=== PATIENT | male | born 1930 | race Caucasian/White ===

== ENCOUNTER 2018-01-24 02:39 | Emergency (ER) | payer OTHER ==
[~2018-01-24] VITALS: Ht 182.9 cm; Wt 108.4 kg
[~2018-01-24 02:39] MED LIST: ASPIR LOW81 MG PO; BAYER ASPIRIN C81 MG PO; LOTENSIN10 MG PO; VITAMIN D2000 I2 PO
[2018-01-24 02:49] VITALS: Ht 182.9 cm; Wt 108.4 kg
[2018-01-24 05:36] VITALS: BP 124/80
== END 2018-01-24 05:36 | disposition home or self-care (01) ==
LOC: ED 02:39
DX: M25.552 Pain in left hip (principal); M19.90 Unspecified osteoarthritis, unspecified site; I10 Essential (primary) hypertension
CPT/HCPCS: J1885

== ENCOUNTER 2018-01-28 03:39 | Emergency (ER) | payer OTHER ==
[~2018-01-28] VITALS: Ht 182.9 cm; Wt 108.9 kg
[2018-01-28 03:51] VITALS: Ht 182.9 cm; Wt 108.9 kg
[2018-01-28 06:20] LABS: UA SPECIFIC GRAVITY 1.025 (1.005-1.035); microscopic required? YES; urine erythrocyte NEGATIVE (NEGATIVE)
[2018-01-28 08:55] VITALS: BP 165/78
== END 2018-01-28 08:55 | disposition home or self-care (01) ==
LOC: ED 03:39
PROVIDERS: Emergency Medicine
DX: M25.552 Pain in left hip (principal); I10 Essential (primary) hypertension
CPT/HCPCS: J1885; J3010

== ENCOUNTER 2018-05-14 16:06 | Inpatient (IN) | payer OTHER ==
[~2018-05-14] VITALS: Ht 182.9 cm; Wt 105.7 kg
[~2018-05-14 16:06] MED LIST changes: +D-20001 TAB PO; -VITAMIN D2000 I2 PO
[2018-05-14 16:19] VITALS: Ht 182.9 cm; Wt 105.7 kg
[2018-05-14 17:14] LABS: BASOPHIL % 0.1 % (0-2); PLATELET COUNT 174 x10^3mcL (130-400)
[2018-05-14 17:15] LABS: RED CELL DISTRIBUTION WIDTH 15.9 % (11.5-14.5)
[2018-05-14 17:18] LABS: CALCIUM 8.2 mg/dL (8.5-10.1); CARBON DIOXIDE 27.5 mmol/L (21-32); CHLORIDE SERUM 105 mmol/L (98-107); CREATININE SERUM 1.1 mg/dL (0.7-1.3); GLUCOSE SERUM 87 mg/dL (74-106); POTASSIUM SERUM 4.1 mmol/L (3.5-5.1); SODIUM SERUM 139 mmol/L (136-145)
[2018-05-14 17:23] LABS: ALKALINE PHOSPHATASE 117 U/L (46-116); ALT/SGPT 20 U/L (16-63); AST/SGOT 19 U/L (15-37); BILIRUBIN TOTAL 0.5 mg/dL (0.20-1.00); TOTAL PROTEIN, SERUM 6.8 g/dL (6.4-8.2)
[2018-05-14 17:24] LABS: ALBUMIN 2.7 g/dL (3.4-5.0)
[2018-05-14] MEDS ORDERED: ATORVASTATIN CA40 M1 PO (17:25)
[2018-05-14] MEDS ORDERED: NYSTOP100000 U/G (17:26)
[2018-05-14] MEDS ORDERED: LOSARTAN POTASS50 M1 PO (17:26)
[2018-05-14] MEDS ORDERED: ESCITALOPRAM10 M1 PO (17:26)
[2018-05-14] MEDS ORDERED: COLACE100 MG PO (17:26)
[2018-05-14] MEDS ORDERED: TAMSULOSIN HYD0.4 M1 PO (17:27)
[2018-05-14 19:12] VITALS: BP 139/73
[2018-05-15 06:00] VITALS: BP 102/57
[2018-05-15 06:33] LABS: ALKALINE PHOSPHATASE 113 U/L (46-116); ALT/SGPT 21 U/L (16-63); AST/SGOT 21 U/L (15-37); BILIRUBIN TOTAL 0.52 mg/dL (0.20-1.00); CALCIUM 8.5 mg/dL (8.5-10.1); CARBON DIOXIDE 29.1 mmol/L (21-32); CHLORIDE SERUM 108 mmol/L (98-107); CREATININE SERUM 1.3 mg/dL (0.7-1.3); GLUCOSE SERUM 120 mg/dL (74-106); SODIUM SERUM 139 mmol/L (136-145); TOTAL PROTEIN, SERUM 6.4 g/dL (6.4-8.2)
[2018-05-15 06:58] LABS: BASOPHIL % 0.4 % (0-2); PLATELET COUNT 147 x10^3mcL (130-400); RED CELL DISTRIBUTION WIDTH 15.6 % (11.5-14.5)
[2018-05-15 07:15] LABS: ALBUMIN 2.4 g/dL (3.4-5.0); POTASSIUM SERUM 5.9 mmol/L (3.5-5.1)
[2018-05-15 08:05] VITALS: BP 96/52
[2018-05-15 10:28] LABS: UA SPECIFIC GRAVITY >=1.030 (1.005-1.035); microscopic required? YES; urine erythrocyte NEGATIVE (NEGATIVE)
[2018-05-15 17:31] VITALS: BP 139/58
[2018-05-15 20:40] VITALS: BP 113/61
[2018-05-16 05:35] VITALS: BP 126/64
[2018-05-16 08:30] VITALS: BP 113/69
[2018-05-16] MEDS ORDERED: NEU300 PO (09:54)
[2018-05-16 12:29] LABS: CALCIUM 7.9 mg/dL (8.5-10.1); CARBON DIOXIDE 28.1 mmol/L (21-32); CHLORIDE SERUM 105 mmol/L (98-107); CREATININE SERUM 1.1 mg/dL (0.7-1.3); GLUCOSE SERUM 101 mg/dL (74-106); POTASSIUM SERUM 4.1 mmol/L (3.5-5.1); SODIUM SERUM 139 mmol/L (136-145)
[2018-05-16 17:45] VITALS: BP 138/76
[2018-05-16 20:44] VITALS: BP 119/64
[2018-05-17 05:51] VITALS: BP 111/70
[2018-05-17 08:58] VITALS: BP 108/62
[2018-05-17 11:03] VITALS: BP 108/62
== END 2018-05-17 12:35 | disposition home or self-care (01) | DRG 554 ==
LOC: ED 16:06 → MU 18:19
PROVIDERS: Emergency Medicine; Internal Medicine; Internal Medicine Pulmonary Disease
DX: M16.0 Bilateral primary osteoarthritis of hip (principal); E44.0 Moderate protein-calorie malnutrition; G89.4 Chronic pain syndrome; F32.9 Major depressive disorder, single episode, unspecified; I25.10 Atherosclerotic heart disease of native coronary artery without angina pectoris; I11.9 Hypertensive heart disease without heart failure; N40.0 Benign prostatic hyperplasia without lower urinary tract symptoms; E78.5 Hyperlipidemia, unspecified; F41.9 Anxiety disorder, unspecified; Z68.32 Body mass index [BMI] 32.0-32.9, adult; Z95.5 Presence of coronary angioplasty implant and graft; Z79.82 Long term (current) use of aspirin
CPT/HCPCS: 90658; 97110-GP; 97116-GP; 97530-GP; G0480; J1885; J2270; J2405; J3490; Q0092

== ENCOUNTER 2018-11-14 08:04 | Inpatient (IN) | payer OTHER ==
[2018-11-10 14:17] LABS: BASOPHIL % 0.3 % (0-2); PLATELET COUNT 158 x10^3mcL (130-400); RED CELL DISTRIBUTION WIDTH 15.4 % (11.5-14.5)
[2018-11-10 14:26] LABS: ALBUMIN 3.1 g/dL (3.4-5.0); ALKALINE PHOSPHATASE 109 U/L (46-116); ALT/SGPT 19 U/L (16-63); AST/SGOT 17 U/L (15-37); BILIRUBIN TOTAL 0.4 mg/dL (0.20-1.00); CALCIUM 8.6 mg/dL (8.5-10.1); CARBON DIOXIDE 26.8 mmol/L (21-32); CHLORIDE SERUM 107 mmol/L (98-107); CREATININE SERUM 1.3 mg/dL (0.7-1.3); GLUCOSE SERUM 133 mg/dL (74-106); POTASSIUM SERUM 4.5 mmol/L (3.5-5.1); SODIUM SERUM 141 mmol/L (136-145); TOTAL PROTEIN, SERUM 7.4 g/dL (6.4-8.2)
[~2018-11-14] VITALS: Ht 182.9 cm; Wt 104.3 kg
[~2018-11-14 08:04] MED LIST changes: +ATORVASTATIN CA40 M1 PO; +COLACE100 MG PO; +ESCITALOPRAM10 M1 PO; +LOSARTAN POTASS50 M1 PO; +NEU300 PO; +NYSTOP100000 U/G; +TAMSULOSIN HYD0.4 M1 PO
[2018-11-14 08:37] VITALS: BP 158/72
[2018-11-14 09:00] LABS: microscopic required? NO
[2018-11-14 09:39] LABS: UA SPECIFIC GRAVITY 1.025 (1.005-1.035); urine erythrocyte NEGATIVE (NEGATIVE)
--- NOTE | 2018-11-14 15:06 | NUR ---
PHYSICAL THERAPY NOTE PM - UNABLE TO SEE PATIENT AT THIS THIS SECONDARY TO PATIENT CURRENTLY RECIEVING SURGERY FOR LEFT THR. WILL RECOMMEND ATTEMPT EVAL AND TREATMENT ON NEXT VISIT. NURSING AWARE AND CONFIRMED.
[2018-11-14 17:14] VITALS: BP 141/66
--- NOTE | 2018-11-14 17:15 | NUR ---
ASSUMED CARE OF PT S/P LEFT TOTAL HIP SURGERY. PT AWAKE, ALERT, A/O X4. PT ON ROOM AIR WITH NO RESP DISTRESS NOTED. PT DENIES ANY PAIN AT THIS TIME. VSS. PT ORIENTED TO ROOM. PT DENTURES AND GLASSES RETURENED PER PT REQUEST. SAFETY MEASURES IN PLACE, BED LOW AND LOCKED. PT INSTRUCTED TO USE CALL LIGHT FOR ANY ASSISTANCE.
--- NOTE | 2018-11-14 17:18 | NUR ---
RECEIVED PT FROM OR. S/P LEFT TOTAL HIP. DRESSING NOTED TO LEFT HIP, CDI. NO REPORTS OF PAIN. RESP EQUAL AND UNLABORED. ORIENTED PT TO ROOM ADN SURROUNDINGS. IV NOTED TO RH PATENT AND INTACT. INSTRUCTED PT ON THE USE OF CALL LIGHT FOR ASSISTANCE. ENDORSED PT TO PRIMARY NURSE NO
--- NOTE | 2018-11-14 18:43 | NUR ---
PT STABLE AT THIS TIME. PAIN MED ADMINISTERED FOR PAIN 2/10 PER PT REQUEST. 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 FAMILY AT BEDSIDE. SAFETY MEASURES MAINTAINED.
--- NOTE | 2018-11-14 19:03 | NUR ---
NEW IV STARTED TO LEFT FOREARM. PT RESTING COMFORTABLY AT THIS TIME.
--- NOTE | 2018-11-14 20:08 | NUR ---
PT IS AWAKE AND ORIENTED X4. PT DENIES ROGERS OR DIZZINESS AT THIS TIME. PT IS CALM AND COOPERATIVE WITH NURSING CARE. PT DENIES CP OR PRESURE AT THIS TIME. PT HAS PALPABLE PULSES BILAT ALL EXTREMITIES. NO SIGNS OF EDEMA. PT DENIES SOB, RESPIRATIONS EVEN AND UNLABORE ON ROOM AIR. PT LUNG SOUNDS CLEAR TO BILAT LOBES. PT DENIES ABD PAIN AND N/V AT THIS TIME. PT ABD ROUND, SOFT, AND NONTENDER. PT HAS ACTIVE BOWEL SOUNDS. PT HAS RODRIGUEZ CATH IN PLACE DRAINING TO GRAVITY. PT HAS WEAKNESS TO LLE. PT HAS SX INCISION TO LEFT HIP WITH DRESSING IN PLACE. IV FLUIDS LR RUNNING AT 80 ML/HR TO LEFT HAND, IV PATENT WITH NO SIGNS OF INFILTRATION. PT REPORTS PAIN TO LEFT HIP BUT TOLERABLE AT THIS TIME. NO SIGNS OF DISTRESS. WILL CONTINUE TO MONITOR.
[2018-11-14 20:51] VITALS: BP 121/67
--- NOTE | 2018-11-14 23:22 | NUR ---
PT REMAINS IN BED AT THIS TIME RESTING WITH EYES CLOSED. NO SIGNS OF DISTRESS. WILL CONTINEU TO MONITOR.
--- NOTE | 2018-11-15 04:27 | NUR ---
PT REMAINS IN BED AT THIS TIME RESTING WITH EYES CLOSED. NO SIGNS OF DISTRESS. WILL CONTINUE TO MONITOR.
[2018-11-15 05:57] VITALS: BP 104/59
[2018-11-15 06:22] LABS: BASOPHIL % 0.1 % (0-2); PLATELET COUNT 133 x10^3mcL (130-400)
[2018-11-15 06:45] LABS: CALCIUM 8.2 mg/dL (8.5-10.1); CARBON DIOXIDE 27.5 mmol/L (21-32); CHLORIDE SERUM 106 mmol/L (98-107); CREATININE SERUM 1.4 mg/dL (0.7-1.3); GLUCOSE SERUM 112 mg/dL (74-106); POTASSIUM SERUM 4.9 mmol/L (3.5-5.1); SODIUM SERUM 139 mmol/L (136-145)
--- NOTE | 2018-11-15 06:57 | NUR ---
PT IS CALM AND COOPERATIVE WITH NURSING CARE. PT HAS RODRIGUEZ IN PLACE AND TOLERATING WELL. PT REMAINS ON IV ATB AND TOLERATING WELL. PT C/O PAIN AND ATTEMPTED TO ALLEVIATE PAIN THROUGH NONPHARMACOLOGICAL MEANS BUT WAS INEFFECTIVE AND RECEIVED PRN PAIN MEDICATIONS. PT SLEPT THROUGHOUT THE EVENING. ALL PT NEEDS MET. NO SIGNS OF DISTRESS. WILL ENDORSE TO DAY NURSE.
--- NOTE | 2018-11-15 07:05 | NUR ---
RECEIVED REPORT FROM KELI DOYLE. PT RESTING COMFROATBLY IN BED. IV TO LT HAND IS PATENT AND INFUSING LR @ 80 ML/HR. NO REDNESS OR PAIN. SEIZURE PRECAUTIONS IN PLACE. PT ON ROOM AIR. NO C/O SOB AND NO DISTRESS NOTED. POST OPERATIVE INCISION TO LT HIP. COVERED WITH OPTIFOAM. CDI. ALL QUESTIONS AND CONCERNS ADDRESSED.
[2018-11-15 07:17] LABS: RED CELL DISTRIBUTION WIDTH 14.8 % (11.5-14.5)
--- NOTE | 2018-11-15 09:25 | NUR ---
IN TO SEE PATIENT AND ADMINISTER MEDICATION (SEE eMAR). PT RESTING COMFORTABLY IN BED. ALL NEEDS MET.
[2018-11-15 09:32] VITALS: BP 115/61
--- NOTE | 2018-11-15 12:43 | NUR ---
IN TO SEE PATIENT AND CONTINUE FLUIDS. IV FLUIDS STILL INFUSING AND DO NOT NEED REPLACEMENT CURRENTLY. ALL OTHER NEEDS MET.
[2018-11-15 17:38] VITALS: BP 118/58
--- NOTE | 2018-11-15 19:20 | NUR ---
REPORT GIVEN TO RISSA DOYLE. PT RESTING COMFORTABLY IN BED. ALL NEEDS MET. ALL QUESTIONS AND CONCERNS ADDRESSED. ALL CARES ENDORSED.
--- NOTE | 2018-11-15 19:35 | NUR ---
RECIEVE PT IN BED, WITH NO ACUTE SIGNS OF DISTRESS NOTED AT THIS TIME, PT HAS NO C/O PAIN AT THIS TIME. PT A/O X 4 , PERIPHERAL PULSES PALPABLE THROUGHOUT, TRACE EDEMA TO THE LOWER EXTREMITIES, CAP REFIL LESS THAN 3 SECONDS, LUNG SOUNDS CTA, NO RESPIRATORY DISTRESS AT THIS TIME, PT BOWEL SOUNDS ACTIVE, RODRIGUEZ CATH IN PLACE DRAINING CLEAR YELLOW URINE, INCISION TO LEFT HIP COVERED WITH OPTIFOAM, CLEAN DRY AND INTACT, IV TO LEFT ARM RUNNING LR AT 80MLS AN HOUR SITE CLEAN DRY AND INTACT SO SIGNS OF REDNESS OR INFILTRATION. ABDUCTOR PILLOW IN PLACE, SAFETY PRECAUTIONS IN PLACE WILL CONTINUE TO MONITOR
[2018-11-15 20:48] VITALS: BP 109/63
--- NOTE | 2018-11-15 22:30 | NUR ---
PT IN BED RESTING NO SIGNS OF ACUTE DISTRESS NOTED ABDUCTOR WEDGE IN PLACE, PT DENIES PAIN AT THIS TIME, BED IN THE LOWEST POSITION, SAFETY PRECAUTIONS IN PLACE, WILL CONTINUE TO MONITOR.
--- NOTE | 2018-11-16 01:30 | NUR ---
PT REPORTS "FEELING LIKE HAVING TO HAVE A BOWEL MOVEMNET" BUT ONLY PASSED GAS
--- NOTE | 2018-11-16 04:09 | NUR ---
PT COMPLAINING OF 5/10 THROBBING PAIN TO THE LEFT HIP, REQUESTED PAIN MEDICATION, ADMINISTERED, NORCO 5/325 PER PRN ORDER, WILL REASSESS
[2018-11-16 05:46] VITALS: BP 120/58
[2018-11-16 06:24] LABS: CARBON DIOXIDE 28.1 mmol/L (21-32); CHLORIDE SERUM 104 mmol/L (98-107); CREATININE SERUM 1.4 mg/dL (0.7-1.3); GLUCOSE SERUM 111 mg/dL (74-106); POTASSIUM SERUM 5.2 mmol/L (3.5-5.1); SODIUM SERUM 134 mmol/L (136-145)
[2018-11-16 06:29] LABS: BASOPHIL % 0 % (0-2); PLATELET COUNT 127 x10^3mcL (130-400); RED CELL DISTRIBUTION WIDTH 15.4 % (11.5-14.5)
--- NOTE | 2018-11-16 07:16 | NUR ---
PHYSICAL THERAPY DAILY NOTES CO-SIGN All documentation done by the Station Worker for 11/16/18 has been reviewed. I agree with the documentation. Reviewed/Co-Signed by: Tenisha Banuelos PT Documentation Done by:JAMI CAROLINA PTA CO-SIGNED FOR THE DATE 11/15/18
--- NOTE | 2018-11-16 08:00 | NUR ---
RECEIVED PATIENT SITTING UP IN BED A/O X4. BREATHING EVEN UNLABBORED ON RA, DENIES SOB, NO DISTRESS NOTED, DENIES CHEST PAIN. IV TO LFA INTACT INFUSING LR AT 80 ML/HR FREE FROM REDNESS AND INFILTRATION. PATIENT IS S/P LEFT TOTAL HIP ARTHROPLASTY ON 11/14/18 WITH DRESSING TO LEFT HIP CDI, PATIENT DENIES ANY PAIN. PATIENT IS CALM WITH CARE. INSTRUCTED TO CALL FOR ASSISTANCE IF NEEDED. SAFETY PRECAUTIONS IN PLACE, WILL MONITOR.
[2018-11-16 09:05] VITALS: BP 123/56
--- NOTE | 2018-11-16 10:15 | NUR ---
PATIENT UP SITTING AT EDGE OF BED NO DISTRESS NOTED. IV TO LFA H/L AT THIS TIME SO PATIENT CAN WORK WITH PHYSICAL THERAPY. SAFETY PRECAUTIONS IN PLACE. WILL MONITOR.
[2018-11-16] MEDS ORDERED: ECO81 PO (10:28)
[2018-11-16] MEDS ORDERED: ACETAMINOPHEN-H1 TA1 PO (10:28)
--- NOTE | 2018-11-16 10:45 | NUR ---
SPOKE WITH DR. COLE REGARDING PLAN OF CARE- PER DR. CANALES PATIENT WILL STAY ANOTHER DAY OR TWO WITH PLAN TO DISCHARGE BACK TO ASSISTED LIVING WITH HOME HEALTH PHYSICAL THERAPY AND OKAY TO D/C RODRIGUEZ CATHETER TODAY. ALL QUESTIONS AND CONCERNS ADDRESSED, WILL CARRY OUT ORDER.
--- NOTE | 2018-11-16 13:45 | NUR ---
PATIENT ASSISTED TO RESTROOM BY JAMI WISDOM, PATIENT SEEN SITTING ON TOILET NO DISTRESS NOTED, PATIENT STATED HE IS PASSING A LOT OF GAS BUT NO BM YET. INFORMED PATIENT TO PULL CORD ON WALL WHEN HE NEEDS ASSITANCE BACK TO BED. PATIENT VERBALIZED UNDERSTANDING. SAFETY PRECAUTIONS IN PLACE. WILL MONITOR.
--- NOTE | 2018-11-16 14:10 | NUR ---
PATIENT RESTING IN BED COMFORTABLY, RODRIGUEZ CATH REMOVED AT THIS TIME PER DR. COLE ORDERS. PATIENT TOLERATED WELL, DENIES ANY PAIN. PROVIDED PATIENT WITH URINAL AND INSTRUCTED TO CALL FOR ASSISTANCE USING URINAL OR WHEN HE NEEDS TO USE RESTROOM. PATIENT VERBALIZED UNDERSTANDING. SAFETY PRECAUTIONS MAINTAINED. WILL MONITOR.
--- NOTE | 2018-11-16 15:19 | NUR ---
DR. COLE MADE AWARE OF NA 134, K 5.2. PER DR. COLE STOP IVF AND WILL MONITOR ELECTROLYTES. ALL QUESTIONS AND CONCERNS ADDRESSED. WILL CARRY OUT ORDER.
[2018-11-16 17:04] VITALS: BP 118/52
--- NOTE | 2018-11-16 17:20 | NUR ---
PATIENT RESTING COMFORTABLY IN BED WATCHING TELEVISION, NO DISTRESS NOTED. PATIENT REPOSITIONED AND MADE COMFORTABLE IN BED, ABDUCTOR PILLOW IN PLACE. ALL NEEDS ATTENDED TO. SAFETY PRECAUTIONS MAINTAINED. WILL MONITOR.
--- NOTE | 2018-11-16 19:20 | NUR ---
REPORT GIVEN TO LISSETH DOYLE AND LATOSHA DOYLE, ALL QUESTIONS AND CONCERNS ADDRESSED. ALL CARES ENDORSED.
--- NOTE | 2018-11-16 19:30 | NUR ---
RECIEVED PT RESTING COMFORTABLY IN BED WATCHING THE BASKETBALL GAME, NO ACUTE DISTRESS NOTED AT THIS TIME, PT A/OX4, PULSES PALPABLE THROUGHOUT, TRACE EDEMA TO THE LOWER EXTREMITIES, ON RA LUNG SOUNDS CTA THROUGHOUT, BOWEL SOUNDS ACTIVE X 4 , PT VOIDS IN URINAL AT BEDSIDE, TOTAL LEFT HIP REPLACEMENT, ABDUCTOR WEDGE IN PLACE. INCISION TO LEFT HIP COVERED WITH OPTIFOAM DRESSING CDI, NO SIGNS OF REDDNESS, PT REPORTS 0/10 PAIN AT THIS TIME, IV LFA 22G SALINE LOCKED CDI NO SIGNS OF REDNESS OR SWELLING. SAFETY MEASURES IN PLACE, WILL CONTINUE TO MONITOR
--- NOTE | 2018-11-16 20:15 | NUR ---
PT COMPLAINS OF 6/10 THROBING PAIN TO THE LEFT HIP, ADMINISTERED NORCO 5/325 PER PRN ORDER, WILL REASSESS
--- NOTE | 2018-11-16 21:21 | NUR ---
PT REPORTS RELIEF OF THROBBING LEFT HIP PAIN TO AN ACCEPTABLE LEVEL OF 4/10, SAFETY PRECAUTIONS IN PLACE, WILL CONTINUE TO MONITOR
[2018-11-16 21:24] VITALS: BP 104/53
--- NOTE | 2018-11-16 22:50 | NUR ---
PT SLEEPING COMFORTABLY IN BED, NO ACUTE DISTRESS AT THIS TIME, RESPIRATIONS EVEN AND UNLABORED, ALL SAFETY PRECAUTIONS IN PLACE, WILL CONTINUE TO MONITOR
--- NOTE | 2018-11-17 01:26 | NUR ---
PT SLEEPING COMFORTABLY IN BED NO ACUTE DISTRESS AT THIS TIME, RESPIRATIONS EVEN AND UNLABOURED, ALL SAFETY PRECAUTIONS MAINTAINED, WILL CONTINUE TO MONITOR
--- NOTE | 2018-11-17 03:25 | NUR ---
PT SLEEPING COMFORTABLY IN BED, RESPIRATIONS EVEN AND UNLABOURED, SAFETY PRECAUTIONS IN PLACE, WILL CONTINUE TO MONITOR
--- NOTE | 2018-11-17 05:02 | NUR ---
CLEANED LEFT ABDOMINAL FOLD RASH WITH NS, PATTED DRY, DRESSED WITH INTERDRY SHEET.
--- NOTE | 2018-11-17 05:36 | NUR ---
PT SLEPT COMFORTABLY THROUGH THE NIGHT WITH NO ACUTE SIGNS OF DISTRESS THROUGH THE NIGHT, PT HAD ON EPISODE OF PAIN THAT RESOLVED TO A TOLERABLE LEVEL WITH PRN ADMINISTRATION OF NORCO 5/325. ALL PT NEEDS ATTENDED TO THROUGH THE NIGHT, WILL ENDORSE CARE TO ONCOMING RN
[2018-11-17 05:47] VITALS: BP 110/52
[2018-11-17 06:56] LABS: CALCIUM 8.2 mg/dL (8.5-10.1); CARBON DIOXIDE 24.8 mmol/L (21-32); CHLORIDE SERUM 104 mmol/L (98-107); CREATININE SERUM 1.1 mg/dL (0.7-1.3); GLUCOSE SERUM 94 mg/dL (74-106); POTASSIUM SERUM 4.2 mmol/L (3.5-5.1); SODIUM SERUM 137 mmol/L (136-145)
[2018-11-17 07:00] LABS: BASOPHIL % 0.2 % (0-2)
[2018-11-17 07:03] LABS: PLATELET COUNT 120 x10^3mcL (130-400); RED CELL DISTRIBUTION WIDTH 15.2 % (11.5-14.5)
--- NOTE | 2018-11-17 07:40 | NUR ---
PT IS AAOX4. DENIES H/A OR DIZZINESS. NORMAL S1S2 NOTED. RESP EVEN AND UNLABORED. LUNG SOUNDS CTA. ON R/A. ABDOMEN SOFT, ROUND, NONTENDER. BOWEL SOUNDS ACTIVE. PT HAS C/O CONSTIPATION. SENEKOT AND MOM WILL BE ORDERED. PERIPHERAL PULSES PALPABLE. BLE TRACE EDEMA. DENIES PAIN OR NUMBNESS. PT ENCOURAGED TO ELEVATE LEGS WHEN IN BED AND SITTING. PT HAS LEFT HIP INCISION COVERD WITH OPTIFOAM DRESSING, CDI WITH NO S/S OF INFECTION NOTED. PT DENIES PAIN AT THIS TIME. IV CATH TO LFA 22G PATENT, N/S LOCKED. SITE WNL. CALL LIGHT WITHIN REACH. BED IN LOWEST POSITION.
--- NOTE | 2018-11-17 07:49 | NUR ---
RECEIVED ORDER FROM DR. COLE TO D/C FLUIDS, MOM 30ML PO A DAILY PRN IF SENNA IS INEFFECTIVE. SENNA PO BID FOR CONSTIPATION. PT TO DISCHARGED TODAY OR TOMMORROW. PT REQUESTED SNF PLACEMENT FOR P/T. DR COLE WILL SPEAK TO CASE MANAGEMENT ABOUT THE REQUEST. PT AGREED WITH POC.
--- NOTE | 2018-11-17 07:53 | NUR ---
PHYSICAL THERAPY DAILY NOTES CO-SIGN All documentation done by the Senior Wind Energy Consultant for 11/17/18 has been reviewed. I agree with the documentation. Reviewed/Co-Signed by: Tenisha Banuelos PT Documentation Done by:JAMI COSBY FORCE ADJUSTMENT SUPERVISOR CO-SIGNED FOR 11/16/18
[2018-11-17 07:54] VITALS: BP 124/66
--- NOTE | 2018-11-17 08:32 | NUR ---
PT RECEIVED PT TRAINING. PT AMBULATED TO HALLWAY AND BACK TO BEDSIDE CHAIR. PT TOLERATED ACTVITY WELL WITH SOME C/O L HIP PAIN 5/10.
--- NOTE | 2018-11-17 09:09 | NUR ---
NORCO 5/325MG PO GIVEN FOR L ACHING L HIP PAIN 02/07. PT HAS C/O CONSTIPATION. NEW ORDER FOR SENNEKOT PO GIVEN ALONG WITH ROUTINE COLACE. EXTRA FLUIDS TAKEN BY PT. PT TAUGHT TO DRINK FLUIDS THREW OUT THE DAY TO HELP SENNEKOT AND COLACE BE EFFECTIVE. PT VERBALIZED UNDERSTANDING. PT SITTING IN CHAIR AT BEDSIDE. PT REFUSED ABDUCTOR PILLOW. PT TAUGHT TO KEEP LEGS FROM CROSSING. PT VERBALIZED UNDERSTANDING. CALL LIGHT WITHIN REACH.
--- NOTE | 2018-11-17 10:10 | NUR ---
RECEIVED ORDER FROM DR. COLE, NYSTATIN TOP BID. ORDER NOTED AND CARRIED OUT. PT MADE OF NEW ORDER.
--- NOTE | 2018-11-17 12:04 | NUR ---
RECEIVED ORDER FROM DR. COLE. PLEASE HAVE SOCIAL SERVICED FOLLOW UP ON SNF PLACEMENT FOR PT THERAPY. ORDER NOTED AND CARRIED OUT. PT MADE AWARE.
--- NOTE | 2018-11-17 12:07 | NUR ---
PT IS AAOX4. DENIES H/A OR DIZZINESS. NORMAL S1S2 NOTED. RESP EVEN AND UNLABORED. LUNG SOUNDS CTA. ON R/A. ABDOMEN SOFT, ROUND, NONTENDER. BOWEL SOUNDS ACTIVE. PT HAS C/O CONSTIPATION. SENEKOT AND MOM WILL BE ORDERED. PERIPHERAL PULSES PALPABLE. BLE TRACE EDEMA. DENIES PAIN OR NUMBNESS. PT ENCOURAGED TO ELEVATE LEGS WHEN IN BED AND SITTING. PT HAS LI HIP INCISION COVERD WITH OPTIFOAM DRESSING, CDI WITH NO S/S OF INFECTION NOTED. PT DENIES PAIN AT THIS TIME. IV CATH TO LFA 22G PATENT, N/S LOCKED. SITE WNL. CALL LIGHT WITHIN REACH. BED IN LOWEST POSITION.
--- NOTE | 2018-11-17 13:18 | NUR ---
PT IS SITTING UP IN CHAIR AT BEDSIDE EATING LUNCH. DENIES PAIN OR DISCOMFORT. RESP EVEN AND UNLABORED. NO SOB. PT REFUSED TO WEAR ABDUCTOR. PT REMINDED TO NOT CROSS LEGS. PT VERBALIZED UNDERSTANDING. CALL LIGHT WITHIN REACH.
--- NOTE | 2018-11-17 15:08 | NUR ---
PT IS SLEEPING IN BEDSIDE CHAIR. EASILY AROUSABLE. RESP EVEN AND UNLABORED. NO DISTRESS NOTED. PT REFUSED TO USE ABDUCTOR PILLOW. BED PILLOW PLACED BETWEEN PT'S LEGS TO KEEP PT FROM CROSSING THEM. CALL LIGHT WITHIN REACH.
[2018-11-17 15:17] VITALS: BP 100/47
[2018-11-17 15:23] VITALS: BP 124/66
--- NOTE | 2018-11-17 15:33 | NUR ---
CALLED DR. COLE, REPORTED THAT PT'S INSURANCE WILL NOT LET PT STAY ONE MORE MIDNIGHT. RECEIVED ORDER TO DISCHARGE PT TO SNF FOR P/T. ORDER NOTED AND CARRIED OUT.
--- NOTE | 2018-11-17 17:12 | NUR ---
PT TO DISCHARGED THIS EVENING TO [facility], ROOM 119B. ([phone]). REPORT GIVEN TO YANIRA LEAVITT. PT TO TRANSFER VIA [facility], ETA 1830. PT MADE AWARE OF TRANSFER, ALL QUESTIONS ANSWERED. PT AGREED WITH POC.
--- NOTE | 2018-11-17 18:43 | NUR ---
NORCO 5MG/325MG PO GIVEN FOR L HIP PAIN 01/08. FLUIDS ENCOURAGED. [facility] HAS ARRIVED FOR TRANSPORT. REPORT GIVEN TO BONILLA.
--- NOTE | 2018-11-17 18:55 | NUR ---
PT TRANSFERRED TO [facility] IN NO DISTRESS. DISCHARGED FORMS REVIEWED. ALL QUESTIONS ANSWERED. IV CATH TO LFA REMOVED INTACT. SITE WNL. VS: 97.9, 73, 18, 124/66, 95% R/A. NORCO 5MG/325MG PO GIVEN FOR L LEG PAIN 01/08. ALL PERSONAL BELONGINGS TAKEN HOME.
--- NOTE | 2018-11-20 07:52 | NUR ---
PHYSICAL THERAPY DAILY NOTES CO-SIGN All documentation done by the Master Of Ceremonies for 11/20/18 has been reviewed. I agree with the documentation. Reviewed/Co-Signed by: Tenisha Banuelos PT Documentation Done by:CRISTY FOSTER PTA EMIGDIO CO-SIGNED FOR THE DATE 11/17/18
--- NOTE | 2018-11-20 08:01 | NUR ---
PHYSICAL THERAPY DAILY NOTES CO-SIGN All documentation done by the Final Inspector And Tester for 11/20/18 has been reviewed. I agree with the documentation. Reviewed/Co-Signed by: Tenisha Banuelos PT Documentation Done by:JAMI COSBY GOVERNMENT SALES MANAGER CO-SIGNED FOR THE DATE 11/17/18
== END 2018-11-17 18:55 | DRG 470 ==
LOC: MU 08:04 → DU 08:04 → MU 12:18
PROVIDERS: ADMIT Orthopaedic Surgery
PROC: 0SRB03Z Replacement of Left Hip Joint with Ceramic Synthetic Substitute, Open Approach (ICD-10-PCS; principal; 2018-11-14 10:30)
DX: M16.12 Unilateral primary osteoarthritis, left hip (principal); I11.9 Hypertensive heart disease without heart failure; I25.10 Atherosclerotic heart disease of native coronary artery without angina pectoris; F32.9 Major depressive disorder, single episode, unspecified; I25.2 Old myocardial infarction; E66.9 Obesity, unspecified; Z68.32 Body mass index [BMI] 32.0-32.9, adult; Z95.5 Presence of coronary angioplasty implant and graft; Z79.82 Long term (current) use of aspirin; Z79.891 Long term (current) use of opiate analgesic
CPT/HCPCS: 97110-GP; 97116-GP; 97530-GP; C1776; J0690; J1170; J1885; J2270; J2704; J3010; J3490; J7040; J7120

== ENCOUNTER 2019-09-25 19:01 | Emergency (ER) | payer OTHER ==
[~2019-09-25] VITALS: Ht 182.9 cm; Wt 104.3 kg
[~2019-09-25 19:01] MED LIST changes: +ACETAMINOPHEN-H1 TA1 PO; +ECO81 PO
[2019-09-25 19:25] VITALS: Ht 182.9 cm; Wt 104.3 kg
[2019-09-25 21:24] VITALS: BP 100/72
== END 2019-09-25 21:24 | disposition home or self-care (01) ==
LOC: ED 19:01
DX: S51.811A Laceration without foreign body of right forearm, initial encounter (principal); I10 Essential (primary) hypertension; W01.110A Fall on same level from slipping, tripping and stumbling with subsequent striking against sharp glass, initial encounter; Y93.89 Activity, other specified; Y92.89 Other specified places as the place of occurrence of the external cause; Y99.8 Other external cause status
CPT/HCPCS: 90715; J2001